=== PATIENT | female | born 1965 | race Caucasian/White ===

== ENCOUNTER → 2017-09-15 | Outpatient (REF) ==
[~2017-09-15] MED LIST: ADIPEX-P37.5 MG PO; CALCIUM 600600 MG PO; COPAXONE 20M20 MG/M1 SQ; DETROL LA4 PO; DYAZIDE 25 MG-31 CAP PO; ESTRACE2 MG PO; FLEXERIL 1010 MG/TAB PO; IBU800 M1 PO; MAG-OX 400400 MG/TAB PO; MOBIC15 MG PO; NEURONTIN300 MG/CAP PO; ONE DAILY1 TA1 PO; TENORMIN 5050 MG/TAB PO; ULTRAM 50MG TAB50 MG PO; VITAMIN D32000 I1 PO; ZOLOFT 100MG100 MG PO
== END ==
LOC: ZLAB.WCH 18:05
DX: Z01.89 Encounter for other specified special examinations (principal)

== ENCOUNTER → 2018-01-27 | Outpatient (CLI) | payer OTHER | LOC: COL.RAD 13:45 | DX: G35 Multiple sclerosis (principal); J32.3 Chronic sphenoidal sinusitis; J32.8 Other chronic sinusitis | CPT/HCPCS: A9585 ==

== ENCOUNTER → 2018-02-09 | Outpatient (CLI) | payer OTHER | LOC: COL.CARD 12:45 | DX: R55 Syncope and collapse (principal); R41.0 Disorientation, unspecified; Z86.69 Personal history of other diseases of the nervous system and sense organs ==

== ENCOUNTER → 2018-02-16 | Outpatient (CLI) | payer OTHER | LOC: COL.RAD 11:53 | DX: G35 Multiple sclerosis (principal); M51.24 Other intervertebral disc displacement, thoracic region; M47.812 Spondylosis without myelopathy or radiculopathy, cervical region; M47.814 Spondylosis without myelopathy or radiculopathy, thoracic region | CPT/HCPCS: A9585 ==